=== PATIENT | male | born 1950 ===

== ENCOUNTER 2018-08-01 14:55 | Emergency (ER) | payer OTHER ==
[~2018-08-01] VITALS: Ht 165.1 cm; Wt 98.9 kg
[~2018-08-01 14:55] MED LIST: ASA-EC81 MG PO; BUMETANIDE2 MG PO; CARAFATE SU1 G/10 ML PO; CIPRO500 MG PO; DORYX100 M1 PO; HUMALOG100 U/ML SUBCUTANEO; LANTUS100 U/ML SUBCUTANEO; NEURONTIN300 MG PO; Neurin-Sl Tablet Sl SL; PROTONIX40 MG PO; VANCOCIN 1GM/VIALMATE IV; VITAMIN B12 IM; Vitamin B-1 PO; Vitamin B-6 PO; ZANTAC150 MG PO
[2018-08-02] MEDS ORDERED: LACTULOSE20 GM/30 M PO (08:57)
== END 2018-08-02 09:06 | disposition home or self-care (01) ==
LOC: ER 14:55
DX: R42 Dizziness and giddiness (principal); K92.1 Melena; E87.6 Hypokalemia; E11.9 Type 2 diabetes mellitus without complications

== ENCOUNTER 2019-08-26 13:33 | Emergency (ER) | payer OTHER ==
[~2019-08-26] VITALS: Ht 165.1 cm; Wt 101.2 kg
[~2019-08-26 13:33] MED LIST changes: +LACTULOSE20 GM/30 M PO
[2019-08-26] MEDS ORDERED: LASIX20 MG (14:23)
== END 2019-08-26 14:59 | disposition home or self-care (01) ==
LOC: ER 13:33
DX: M54.89 Other dorsalgia (principal); R07.89 Other chest pain

== ENCOUNTER 2019-09-10 14:25 | Emergency (ER) | payer OTHER ==
[~2019-09-10] VITALS: Ht 167.6 cm; Wt 106.6 kg
[~2019-09-10 14:25] MED LIST changes: +LASIX20 MG
== END 2019-09-10 19:46 | disposition home or self-care (01) ==
LOC: ER 14:25
DX: K74.69 Other cirrhosis of liver (principal)

== ENCOUNTER 2019-10-01 20:26 | Inpatient (IN) | payer OTHER ==
[~2019-10-01] VITALS: Ht 167.6 cm; Wt 86.2 kg
[2019-10-03] MEDS ORDERED: LACTULOSE10 GM/15 M PO (08:45)
[2019-10-03] MEDS ORDERED: ALDACTONE50 MG PO (10:13)
== END 2019-10-03 18:07 | disposition home or self-care (01) | DRG 443 ==
LOC: ER 20:26 → MEDJ 10-02 09:52
PROVIDERS: ADMIT Internal Medicine
DX: K72.00 Acute and subacute hepatic failure without coma (principal)

== ENCOUNTER 2019-12-29 18:16 | Inpatient (IN) | payer OTHER ==
[~2019-12-29] VITALS: Ht 180.3 cm; Wt 94.8 kg
[~2019-12-29 18:16] MED LIST changes: +ALDACTONE50 MG PO; +LACTULOSE10 GM/15 M PO
== END 2019-12-30 07:30 | disposition expired | DRG 441 ==
LOC: ER 18:16 → ICU-2 22:27
PROVIDERS: ADMIT Internal Medicine; ATTEND Internal Medicine
PROC: 0T9B70Z Drainage of Bladder with Drainage Device, Via Natural or Artificial Opening (ICD-10-PCS; principal; 2019-12-29)
DX: K76.1 Chronic passive congestion of liver (principal); A41.9 Sepsis, unspecified organism; R65.21 Severe sepsis with septic shock; K72.01 Acute and subacute hepatic failure with coma; J96.01 Acute respiratory failure with hypoxia; L03.115 Cellulitis of right lower limb; N17.8 Other acute kidney failure; E87.6 Hypokalemia; E86.0 Dehydration; E87.8 Other disorders of electrolyte and fluid balance, not elsewhere classified; I80.3 Phlebitis and thrombophlebitis of lower extremities, unspecified; D69.49 Other primary thrombocytopenia; N39.8 Other specified disorders of urinary system